=== PATIENT | female | born 1980 | race American Indian/Alaskan Native ===

== ENCOUNTER 2018-12-01 09:43 | Emergency (ER) | payer SELFPAY ==
[2018-12-01 09:54] VITALS: BP 133/88
[2018-12-01] MEDS ORDERED: XOPENEX IH ONE (11:00)
[2018-12-01] MEDS ORDERED: DECADRON IM STA (11:00)
[2018-12-01] MEDS ORDERED: ATROVENT IH ONE (11:00)
--- NOTE | 2018-12-01 11:00 | Emergency Department Report ---
Minor Respiratory - HPI Chief Complaint: Upper Respiratory Infection Stated Complaint: CHEST PAIN/BACK PAIN Time Seen by Provider: 12/01/18 10:00 Duration: 1 weeks Pain Location: Other (generalized ahing) Severity: mild (4/10) Minor Respiratory: Yes Rhinorrhea (nasal congestion), Yes Able to Tolerate Fluids, Yes Cough (worse that night), No Sore Throat, No Ear Pain (congested), No Sick Contacts, No Hemoptysis, No Chest Pain, No Shortness of Breath, No Fever ED Review of Systems ROS: Stated complaint: CHEST PAIN/BACK PAIN Other details as noted in HPI Constitutional: denies: chills, fever ENT: congestion, other (clogged ear sensation). denies: ear pain, throat pain Respiratory: cough. denies: shortness of breath, SOB with exertion, SOB at rest, stridor, wheezing Cardiovascular: denies: chest pain, palpitations, edema, syncope Gastrointestinal: denies: abdominal pain, nausea, vomiting Genitourinary: denies: hematuria Musculoskeletal: myalgia. denies: back pain, joint swelling, arthralgia Skin: denies: rash Neurological: denies: headache, numbness, paresthesias, abnormal gait ED Past Medical Hx - Past Medical History Previous Medical History?: Yes Additional medical history: Childbirth x 5, Vaginal delivery x 4 and 1 - Surgical History Past Surgical History?: Yes Additional Surgical History: x 1, Left knee - Family History Family history: hypertension - Social History Smoking Status: Never Smoker Substance Use Type: Non Opiate Pain, Other - Medications Home Medications: Home Medications Medication Instructions Recorded Confirmed Last Taken Type ALBUTEROL Inhaler (OR & NICU) 2 puff IH Q6H PRN #1 inhalation 12/01/18 Unknown Rx [ProAir HFA Inhaler] Amoxicillin/K Clav Tab [Augmentin 1 tab PO Q12HR #20 tab 12/01/18 Unknown Rx 875MG TAB] Cetirizine HCl [ZyrTEC] 10 mg PO QAM 14 Days #14 capsule 12/01/18 Unknown Rx Fluticasone [Flonase] 1 spray NS QDAY 14 Days #1 bottle 12/01/18 Unknown Rx guaiFENesin/CODEINE [Robitussin AC] 10 ml PO QHS PRN #70 oral.liqd 12/01/18 Unknown Rx Minor Respiratory Exam - Exam General: Vital signs noted. No distress. Alert and acting appropriately. This is a 38-year-old female well-nourished well-developed in no acute distress. HEENT: Yes Moist Mucous Membranes, Yes Rhinorrhea (enlarged nasal turbinates bilaterally), No Pharyngeal Erythema, No Pharyngeal Exudates, No Conjuctival Injection, No Frontal Tenderness, No Maxillary Tenderness Ear: Neither TM Bulge (middle-ear effusion), Neither TM Erythema, Neither EAC Pain, Neither EAC Discharge Neck: Yes Supple (full range of motion and no C-spine tenderness), No Adenopathy Lungs: Yes Good Air Exchange, Yes Wheezes (scattered wheezing peggy lung vela), Yes Cough (dry cough), No Ronchi, No Stridor, No Labored Respirations, No Retractions, No Use of Accessory Muscles, No Other Abnormal Lung Sounds Heart: Yes Regular (mild tachycardia 102), No Murmur Abdomen: Yes Normal Bowel Sounds, No Tenderness, No Peritoneal Signs Skin: No Rash, No Edema Neurologic: Alert and oriented, no deficits. Musculoskeletal: Unremarkable. No cce. + 2 pulses in all extremities, no neurovascular compromise ED Course Vital Signs 12/01/18 09:50 Temperature 98.1 F Pulse Rate 102 H Respiratory 18 Rate Blood Pressure 133/88 O2 Sat by Pulse 98 Oximetry Vital Signs 12/01/18 12/01/18 09:50 11:51 Temperature 98.1 F Pulse Rate 102 H 88 Respiratory 18 Rate Blood Pressure 133/88 O2 Sat by Pulse 98 Oximetry - Reevaluation(s) Reevaluation #1: 12/01/18 11:53 Patient received Xopenex 1.26 mg and Atrovent 1 mg nebulizer. She also received Decadron 10 mg IM in emergency room she is feeling better and her lungs sounds are clear. Vital signs are stable ED Medical Decision Making - Medical Decision Making This is a 38-year-old female found to have upper respiratory with cough and congestion and was treated in the emergency room with nebulizer treatment along with steroid. She stable and has no wheezing to upper lung vela. Vital signs are stable she is afebrile and says she is feeling better. Patient discharged home with stable condition and was given prescription for Augmentin, Ventolin inhaler, Zyrtec, Flonase and Medrol Dosepak and to follow up with her primary care in 2-3 days. She voiced understanding and discharged home in stable condition Critical care attestation.: If time is entered above; I have spent that time in minutes in the direct care of this critically ill patient, excluding procedure time. ED Disposition Clinical Impression: URI with cough and congestion Disposition: TO HOME OR SELFCARE Is pt being admited?: No Does the pt Need Aspirin: No Condition: Stable Instructions: Upper Respiratory Infection (ED), Acute Cough (ED) Additional Instructions: Please follow up with a primary care physician in 2-3 days and if you condition worsens he can return to the emergency room. If he do not have a primary care physician follow-up at [facility] and see discharge information on paperwork. Take all medication as prescribed but please do not drive or operate heavy machinery while taking cough medicine as this medication causes drowsiness Rest And increase your fluid intake Referrals: PRIMARY CARE, [Primary Care Provider] - 2-3 Days [facility] [Outside] - 2-3 Days Forms: Accompanied Note, Work/School Release Form(ED)
== END 2018-12-01 12:12 | disposition home or self-care (01) ==
LOC: ED 09:43
DX: J06.9 Acute upper respiratory infection, unspecified (principal); Z79.899 Other long term (current) drug therapy
CPT/HCPCS: 94640; 96372; 99283; J1100; 94644